=== PATIENT | female | born 1995 | race African-American/Black ===

== ENCOUNTER 2016-09-15 16:48 | Emergency (ER) | payer MEDICAID, OTHER ==
[~2016-09-15] VITALS: Ht 170.2 cm; Wt 73.0 kg
[2016-09-15] MEDS ORDERED: ACETAMINOPHEN 325MG TABLET PO ONE (21:45)
[2016-09-15 21:53] LABS: CLARITY URINE CLEAR (CLEAR); COLOR URINE YELLOW (YELLOW); GLUCOSE URINE NEGATIVE (NEGATIVE); KETONES URINE NEGATIVE (NEGATIVE); LEUKOCYTE ESTERASE URINE NEGATIVE (NEGATIVE); NITRITE URINE NEGATIVE (NEGATIVE); OCCULT BLOOD URINE NEGATIVE (NEGATIVE); PROTEIN URINE NEGATIVE (NEGATIVE); UROBILINOGEN URINE 0.2 E.U./dL (0.2-1.0)
[2016-09-15 21:53] LABS: EOSINOPHILS % 2.6 % (0.0-5.0); HEMATOCRIT. 39.1 % (36.0-48.0); HEMOGLOBIN. 13.1 g/dL (12.0-16.0); LYMPHOCYTES % 47.6 % (20.0-50.0); MEAN CORPUSCULAR HEMOGLOBIN 30.6 pg (28.0-32.0); MEAN CORPUSCULAR VOLUME 91.2 fL (81.0-99.0); MEAN PLATELET VOLUME 8.5 fl (7.4-10.4); MONOCYTES % 8.6 % (2.0-8.0); NEUTROPHILS % 40.2 % (40.0-76.0); PLATELET 229 x1000/uL (130-400); RED BLOOD CELL COUNT 4.29 mill/uL (4.2-5.4); RED CELL DISTRIBUTION WIDTH 13.7 % (11.6-14.6)
[2016-09-15 22:00] LABS: CHLORIDE 107 mEq/L (98-107)
[2016-09-15 22:03] LABS: CARBON DIOXIDE 29 mEq/L (21-32)
[2016-09-15 22:09] LABS: HCG SCREEN NEGATIVE
[2016-09-16] MEDS ORDERED: KETOROLAC 30MG/ML VIAL IV ONE (00:15)
[2016-09-16 01:50] VITALS: BP 109/73
[2016-09-16] MEDS ORDERED: IOHEXOL-300 100 ML BOTTLE ONE (14:47)
[2016-09-16] MEDS ORDERED: SODIUM CHLORIDE 0.9% 10ML VIAL ONE (14:47)
== END 2016-09-16 03:32 | disposition home or self-care (01) ==
LOC: ER 09-16 00:06
DX: R10.31 Right lower quadrant pain (principal); N83.201 Unspecified ovarian cyst, right side; F17.210 Nicotine dependence, cigarettes, uncomplicated; F12.10 Cannabis abuse, uncomplicated
CPT/HCPCS: 36415; 74177; 76830; 76856; 80048; 81003; 84703; 85025; 99285; A4216; Q9967; Z7610